=== PATIENT | male | born 1960 | race Caucasian/White ===

== ENCOUNTER 2017-02-27 17:28 | Inpatient (IN) | payer BC ==
[~2017-02-27] VITALS: Ht 180.3 cm; Wt 105.2 kg
[~2017-02-27 17:28] MED LIST: ASPI325T39 PO; ATV5X PO; ETAN50IN2 SQ; LSN20 PO
[2017-02-27] MEDS ORDERED: DIAZEPAM INJ 5 MG/ML 2 ML CARP IV STA ×2 (18:11→19:54)
[2017-02-27] MEDS ORDERED: SODIUM CHLORIDE 0.9% 1000ML 1,000 ML IV STA (18:11)
--- NOTE | 2017-02-27 18:12 | EMERGENCY ROOM VISIT NOTE ---
History Report prepared by Maynor: Mica Serrano Under the Supervision of: Jason JordanO. First contact with patient: 17:53 Chief Complaint: CARDIAC ASSESSMENT Stated Complaint: HEART PRESSURE (ALCOHOL WITHDRAWAL) History of Present Illness The patient is a 56 year old male who presents to the Emergency Room with complaints of alcohol withdrawal today. The patient reports that he had extreme anxiety this morning and that he had more alcohol, but he still felt anxious. He reports that he has palpitations when he has anxiety. He also reports feeling nauseous and light-headed, but denies abdominal pain and urinary symptoms. The patient states that he has a large ecchymosis on his back , but denies falling while being intoxicated. He states that last week he worked out and was not drinking alcohol. The patient reports that he drinks a liter of wine per day and that he has been doing this for most of his life. He states that he has been able to be sober for 6 months previously and denies ever having a seizure from withdrawal. The patient states that he takes lisinopril for hypertension and that he has psoriasis. The patient denies recreational drug use and cigarette use. Source of History: patient Onset: today Position: other (global) Quality: other (alcohol withdrawal) Associated Symptoms: + nausea, No abdominal pain, No urinary symptoms Note: additional symptoms: light-headedness and anxiety Review of Systems See HPI for pertinent positives & negatives. A total of 10 systems reviewed and were otherwise negative. Past Medical & Surgical Medical Problems: (1) Alcohol withdrawal (2) HTN (hypertension) (3) Left leg cellulitis (4) Left leg cellulitis (5) Psoriasis Family History Cancer FH: heart disease Hypertension Social History Smoking Status: Former Smoker Alcohol Use: occasionally Drug Use: none Marital Status: Housing Status: lives with significant other Occupation Status: employed Current/Historical Medications Scheduled Etanercept (Enbrel), 50 MG SQ WK Lisinopril (Lisinopril), 20 MG PO DAILY Scheduled PRN Lorazepam (Lorazepam), 0.5 MG PO BID PRN for Anxiety Allergies Coded Allergies: No Known Allergies (Unverified , 02/27/17) Physical Exam Vital Signs Date Time Temp Pulse Resp B/P (MAP) Pulse Ox O2 Delivery O2 Flow Rate FiO2 02/27/17 21:33 113 15 97 02/27/17 21:31 141/66 02/27/17 21:13 115 17 94 02/27/17 21:01 151/82 02/27/17 20:58 109 28 94 02/27/17 20:43 92 18 96 02/27/17 20:38 103 23 96 02/27/17 20:31 141/79 02/27/17 20:23 95 19 96 02/27/17 20:08 93 18 98 02/27/17 20:01 142/89 02/27/17 19:53 96 17 96 02/27/17 19:50 97 22 147/89 95 Room Air 02/27/17 19:48 02/27/17 19:15 88 17 02/27/17 19:00 92 17 02/27/17 18:55 Room Air 02/27/17 18:45 90 21 90 02/27/17 18:44 92 Room Air 02/27/17 17:58 105 02/27/17 17:38 36.6 104 20 129/79 93 Room Air Physical Exam GENERAL: alert, anxious appearing, well nourished, no distress, smell of ETOH EYE EXAM: normal conjunctiva, PERRL and EOM's grossly intact OROPHARYNX: no exudate, no erythema, lips, buccal mucosa, and tongue normal and mucous membranes are mildly dry NECK: supple, no nuchal rigidity, no adenopathy, non-tender CHEST: No crepitus. No ecchymosis. No step-off. LUNGS: Clear to auscultation. Normal chest wall mechanics HEART: regular, but tachycardic, no murmurs, S1 normal and S2 normal ABDOMEN: abdomen soft, non-tender, normo-active bowel sounds, no masses, no rebound or guarding. BACK: Back is symmetrical on inspection and there is no deformity, no midline tenderness, no CVA tenderness. Large area of ecchymosis to the right low back and right flank. No crepitus. SKIN: no rashes and no bruising UPPER EXTREMITIES: upper extremities are grossly normal. LOWER EXTREMITIES: No pitting edema. NEURO EXAM: Normal sensorium, cranial nerves II-XII intact, normal speech, no weakness of arms, no weakness of legs. No drift. Finger to nose intact. Gross sensation intact. No ataxia, no obvious tremor, no pronator drift. Medical Decision & Procedures ER Provider Diagnostic Interpretation: Radiology results have been interpreted by the radiologist and reviewed by me. CHEST 2 VIEWS ROUTINE CLINICAL HISTORY: palpitations ALCOHOL WITHDRAWAL COMPARISON STUDY: 07/11/2014 FINDINGS: The cardiac and mediastinal contours are normal. There is no evidence of focal pulmonary consolidation. There is no evidence of failure. No pleural effusions are visualized.[ IMPRESSION: No active disease in the chest. Electronically signed by: Patrick Prieto M.D. 02/27/2017 7:06 PM Dictated Date/Time: 02/27/2017 7:05 PM HEAD WITHOUT CONTRAST (CT) CLINICAL HISTORY: 56 years-old Male presenting with etoh, fall. TECHNIQUE: Multidetector CT imaging of the head was performed without the use of intravenous contrast. IV contrast: None. A dose lowering technique was used consistent with the principles of ALARA (as low as reasonably achievable). COMPARISON: None. CT DOSE (mGy.cm): The estimated cumulative dose is 2511.[address] C-spine and abdomen and pelvis. FINDINGS: Doughnut Icer Machine topogram: Unremarkable. Ventricles and sulci normal in size. Brain parenchyma normal in appearance with preserved bhakta-white differentiation. No mass effect or midline shift. No hemorrhage or acute territorial infarct. No extra-axial fluid collection. Paranasal sinuses and mastoid air cells clear. Calvarium intact. IMPRESSION: 1. No acute intracranial pathology. Electronically signed by: Delonte Delgado M.D. 02/27/2017 7:40 PM Dictated Date/Time: 02/27/2017 7:38 PM CERVICAL SPINE W/O CLINICAL HISTORY: 56 years-old Male presenting with etoh, fall. TECHNIQUE: Multidetector CT of the cervical spine was performed without the use of intravenous contrast. IV contrast: None. A dose lowering technique was used consistent with the principles of ALARA (as low as reasonably achievable). COMPARISON: None. CT DOSE (mGy.cm): The estimated cumulative dose is 2511.[address] abdomen pelvis and CT head. FINDINGS: Doughnut Icer Machine topogram: Unremarkable. Slight straightening of normal cervical lordosis, likely positional. No acute fracture or subluxation. Multilevel degenerative changes evident with disc osteophyte complexes at C4-5 through C6-7 and multilevel facet arthropathy. No significant osseous neural foraminal or spinal canal stenosis. Regional soft tissues normal. Skull base normal. Lung apices clear. IMPRESSION: No acute osseous injury of the cervical spine. Electronically signed by: Delonte Delgado M.D. 02/27/2017 7:45 PM Dictated Date/Time: 02/27/2017 7:41 PM ABD/PELVIS IV CONTRAST ONLY CLINICAL HISTORY: 56 years-old Male presenting with trauma, etoh, right low back contusion. TECHNIQUE: Multidetector CT of the abdomen and pelvis was performed after the administration of intravenous contrast. IV contrast: 120 mL of Optiray 320. A dose lowering technique was used consistent with the principles of ALARA (as low as reasonably achievable). COMPARISON: None. CT DOSE (mGy.cm): The estimated cumulative dose is 2511.08 mGy.cm. FINDINGS: Doughnut Icer Machine topogram: Unremarkable. Lung bases: Minimal dependent changes likely atelectasis. Top normal heart size. No pericardial or pleural effusion. Liver: Hepatic steatosis. No focal lesion. Patent hepatic vasculature. Biliary: No intrahepatic or extrahepatic biliary ductal dilatation. Normal gallbladder. Pancreas: Mild parenchymal atrophy. Spleen: Normal. Adrenal glands: Normal. Kidneys and ureters: Mild nonspecific perinephric fat stranding. No evidence of renal contusion or hematoma. No hydronephrosis. Ureters normal. Bladder: Mildly distended. No evidence of bladder rupture. Pelvic organs: Prostate and seminal vesicles normal. Bowel: Normal appendix. No bowel obstruction. No gross bowel wall thickening to suggest injury. Peritoneal cavity: No free fluid or intraperitoneal gas. Vasculature: Atherosclerosis of the normal caliber abdominal aorta. IVC patent. Lymph nodes: No enlarged lymph nodes in the abdomen or pelvis. Abdominal wall: No significant infiltration of the superficial tissues to suggest contusion or hematoma. Small fat-containing umbilical hernia. Musculoskeletal: Degenerative changes of the spine. IMPRESSION: 1. No acute intra-abdominal injury. 2. Hepatic steatosis. Electronically signed by: Delonte Delgado M.D. 02/27/2017 7:50 PM Dictated Date/Time: 02/27/2017 7:45 PM Laboratory Results 02/27/17 18:37 Red Blood Count 4.21, Mean Corpuscular Volume 96.2, Mean Corpuscular Hemoglobin 35.4, Mean Corpuscular Hemoglobin Concent 36.8, Mean Platelet Volume 9.1, Neutrophils (%) (Auto) 63.3, Lymphocytes (%) (Auto) 29.6, Monocytes (%) (Auto) 6.2, Eosinophils (%) (Auto) 0.0, Basophils (%) (Auto) 0.6, Neutrophils # (Auto) 4.43, Lymphocytes # (Auto) 2.07, Monocytes # (Auto) 0.43, Eosinophils # (Auto) 0.00, Basophils # (Auto) 0.04 02/27/17 18:37 Test 02/27/17 18:25 02/27/17 18:37 Urine Opiates Screen NEG (NEG) Urine Methadone, Qualitative NEG (NEG) Urine Barbiturates NEG (NEG) Urine Phencyclidine (PCP) Level NEG (NEG) Ur Amphetamine/Methamphetamine NEG (NEG) MDMA (Ecstasy) Screen NEG (NEG) Urine Benzodiazepines Screen NEG (NEG) Urine Cocaine Metabolite NEG (NEG) Urine Marijuana (THC) NEG (NEG) White Blood Count 6.99 K/uL (4.8-10.8) Red Blood Count 4.21 M/uL (4.7-6.1) Hemoglobin 14.9 g/dL (14.0-18.0) Hematocrit 40.5 % (42-52) Mean Corpuscular Volume 96.2 fL (80-100) Mean Corpuscular Hemoglobin 35.4 pg (25-34) Mean Corpuscular Hemoglobin Concent 36.8 g/dl (32-36) Platelet Count 222 K/uL (130-400) Mean Platelet Volume 9.1 fL (7.4-10.4) Neutrophils (%) (Auto) 63.3 % Lymphocytes (%) (Auto) 29.6 % Monocytes (%) (Auto) 6.2 % Eosinophils (%) (Auto) 0.0 % Basophils (%) (Auto) 0.6 % Neutrophils # (Auto) 4.43 K/uL (1.4-6.5) Lymphocytes # (Auto) 2.07 K/uL (1.2-3.4) Monocytes # (Auto) 0.43 K/uL (0.11-0.59) Eosinophils # (Auto) 0.00 K/uL (0-0.5) Basophils # (Auto) 0.04 K/uL (0-0.2) RDW Standard Deviation 42.1 fL (36.4-46.3) RDW Coefficient of Variation 12.0 % (11.5-14.5) Immature Granulocyte % (Auto) 0.3 % Immature Granulocyte # (Auto) 0.02 K/uL (0.00-0.02) Red Blood Cell Morphology Unremarkable Anion Gap 15.0 mmol/L (3-11) Est Creatinine Clear Calc Drug Dose 115.5 ml/min Estimated GFR () 111.9 Estimated GFR (Non- 96.5 BUN/Creatinine Ratio 16.2 (10-20) Calcium Level 8.7 mg/dl (8.5-10.1) Magnesium Level 1.9 mg/dl (1.8-2.4) Total Bilirubin 0.9 mg/dl (0.2-1) Direct Bilirubin 0.3 mg/dl (0-0.2) Aspartate Amino Transf (AST/SGOT) 55 U/L (15-37) Alanine Aminotransferase (ALT/SGPT) 46 U/L (12-78) Alkaline Phosphatase 90 U/L (45-117) Ammonia 28.0 umol/L (11-32) Total Protein 7.9 gm/dl (6.4-8.2) Albumin 4.2 gm/dl (3.4-5.0) Lipase 286 U/L (73-393) Thyroid Stimulating Hormone (TSH) 1.570 uIu/ml (0.300-4.500) Ethyl Alcohol mg/dL 337.0 mg/dl (0-3) Hepatitis C Antibody Screen NEG (NEG) Laboratory results per my review. Medications Administered Medications (Trade) Dose Ordered Sig/Leonard Route Start Time Stop Time Status Last Admin Dose Admin Sodium Chloride 1,000 ml @ 999 mls/hr Q1H1M STAT IV 02/27/17 18:11 02/27/17 19:11 DC 02/27/17 18:40 999 MLS/HR Diazepam (Valium Inj) 10 mg NOW STAT IV 02/27/17 18:11 02/27/17 18:14 DC 02/27/17 18:39 10 MG Diazepam (Valium Inj) 10 mg NOW STAT IV 02/27/17 19:54 02/27/17 19:55 DC 02/27/17 20:02 10 MG Multivitamins 10 ml/Thiamine HCl 100 mg/Folic Acid 1 mg/Sodium Chloride 1,011.2 ml @ 500 mls/ hr Q2H2M ONCE IV 02/27/17 20:30 02/27/17 22:31 DC 02/27/17 20:47 500 MLS/HR Gabapentin (Neurontin Tab) 1,200 mg NOW STAT PO 02/27/17 20:51 02/27/17 20:52 DC 02/27/17 20:58 1,200 MG ECG Indication: other (cardiac assessment) Rate (beats per minute): 105 Rhythm: sinus tachycardia Findings: no acute ischemic change, other (normal axis, normal intervals, low voltage) ED Course 1754: The patient was evaluated in room C9. A complete history and physical exam was performed. 1810: Ordered Valium Inj 10 mg IV, Sodium Chloride 1,000 ml @ 999 mls/hr IV. 1953: Ordered Valium Inj 10 mg IV. 2013: The patient feels better after Valium. We discussed admission and if he has any desire to get sober. 2029: Ordered Multivitamins 10 ml/Thiamine HCl 100 mg/Folic Acid 1 mg/Sodium Chloride. 2036: I reviewed the patient's case with Dr. Amaya. He will evaluate the patient for further management. Medical Decision Differential diagnosis: Etiologies such as premature contractions, electrolyte abnormality, cardiac dysrhythmia, thyroid dysfunction, pulmonary embolism, infection, gastrointestinal, as well as others were entertained. Patient with evidence of alcohol withdrawal here, no evidence of fulminant DTs and no seizures while in the emergency department. Patient with mild tachycardia was improved with Valium. Patient complained of persistent anxiety , no visible tremors. Patient with a mild anion gap likely secondary to alcohol and dehydration area did no evidence for DKA. Imaging negative for any occult trauma. Patient was agreeable with plan. Hydrated with normal saline and then given banana bag in addition. Given patient at high risk for DTs or significant alcohol withdrawal, discussed case with hospitalist for additional evaluation. Medication Reconcilliation Current Medication List: was personally reviewed by me Blood Pressure Screening Patient's blood pressure: Elevated blood pressure Blood pressure disposition: Elevated BP felt to be situational Consults Time Called: 2009 Consulting Physician: Dr. Fuentes Returned Call: [phone] I reviewed the patient's case with Dr. Amaya. He will evaluate the patient for further management. Impression Primary Impression: Alcohol intoxication Additional Impressions: Alcohol abuse Contusion Scribe Attestation The scribe's documentation has been prepared under my direction and personally reviewed by me in its entirety. I confirm that the note above accurately reflects all work, treatment, procedures, and medical decision making performed by me. Departure Information Dispostion Being Evaluated By Hospitalist Referrals No Doctor, Assigned (PCP) Patient Instructions [facility] Problem Qualifiers Primary Impression: Alcohol intoxication Complication of substance-induced condition: uncomplicated Qualified Codes: F10.920 - Alcohol use, unspecified with intoxication, uncomplicated Additional Impressions: Contusion Encounter type: initial encounter Contusion area: lower back Qualified Codes: S30.0XXA - Contusion of lower back and pelvis, initial encounter
[2017-02-27] MEDS ORDERED: OPTIRAY 320 IV PRN (18:30)
--- NOTE | 2017-02-27 19:08 | DIAGNOSTIC IMAGING REPORT ---
CHEST 2 VIEWS ROUTINE CLINICAL HISTORY: palpitations ALCOHOL WITHDRAWAL COMPARISON STUDY: 07/11/2014 FINDINGS: The cardiac and mediastinal contours are normal. There is no evidence of focal pulmonary consolidation. There is no evidence of failure. No pleural effusions are visualized.[ IMPRESSION: No active disease in the chest. Electronically signed by: Patrick Prieto M.D. 02/27/2017 7:06 PM Dictated Date/Time: 02/27/2017 7:05 PM
[2017-02-27 19:11] LABS: BUN/CREATININE RATIO 16.2 (10-20); CALCIUM 8.7 mg/dl (8.5-10.1); CREATININE 0.84 mg/dl (0.60-1.40); MAGNESIUM 1.9 mg/dl (1.8-2.4); POTASSIUM 3.9 mmol/L (3.5-5.1)
[2017-02-27 19:13] LABS: BENZODIAZEPINE, URINE NEG (NEG); COCAINE,URINE NEG (NEG); PHENCYCLIDINE, URINE NEG (NEG)
[2017-02-27 19:22] LABS: THYROID STIMULATING HORMONE 1.57 uIu/ml (0.300-4.500)
--- NOTE | 2017-02-27 19:42 | DIAGNOSTIC IMAGING REPORT ---
HEAD WITHOUT CONTRAST (CT) CLINICAL HISTORY: 56 years-old Male presenting with etoh, fall. TECHNIQUE: Multidetector CT imaging of the head was performed without the use of intravenous contrast. IV contrast: None. A dose lowering technique was used consistent with the principles of ALARA (as low as reasonably achievable). COMPARISON: None. CT DOSE (mGy.cm): The estimated cumulative dose is 2511.[address] C-spine and abdomen and pelvis. FINDINGS: Field Education Director topogram: Unremarkable. Ventricles and sulci normal in size. Brain parenchyma normal in appearance with preserved bhakta-white differentiation. No mass effect or midline shift. No hemorrhage or acute territorial infarct. No extra-axial fluid collection. Paranasal sinuses and mastoid air cells clear. Calvarium intact. IMPRESSION: 1. No acute intracranial pathology. Electronically signed by: Delonte Delgado M.D. 02/27/2017 7:40 PM Dictated Date/Time: 02/27/2017 7:38 PM
[2017-02-27 19:44] LABS: BASO % 0.6 %; BASO ABS # 0.04 K/uL (0-0.2); COMPLETE YES; HEMATOCRIT 40.5 % (42-52); IG% 0.3 %; LYMPH % 29.6 %; LYMPH ABS # 2.07 K/uL (1.2-3.4); MEAN CELL VOLUME 96.2 fL (80-100); MEAN CORPUSCULAR HEMOGLOBIN 35.4 pg (25-34); MEAN CORPUSCULAR HGB CONC 36.8 g/dl (32-36); MEAN PLATELET VOLUME 9.1 fL (7.4-10.4); MONO % 6.2 %; NEUT % 63.3 %; PLATELET COUNT 222 K/uL (130-400); RED BLOOD COUNT 4.21 M/uL (4.7-6.1); WHITE BLOOD COUNT 6.99 K/uL (4.8-10.8)
--- NOTE | 2017-02-27 19:47 | DIAGNOSTIC IMAGING REPORT ---
CERVICAL SPINE W/O CLINICAL HISTORY: 56 years-old Male presenting with etoh, fall. TECHNIQUE: Multidetector CT of the cervical spine was performed without the use of intravenous contrast. IV contrast: None. A dose lowering technique was used consistent with the principles of ALARA (as low as reasonably achievable). COMPARISON: None. CT DOSE (mGy.cm): The estimated cumulative dose is 2511.[address] abdomen pelvis and CT head. FINDINGS: Color Finisher topogram: Unremarkable. Slight straightening of normal cervical lordosis, likely positional. No acute fracture or subluxation. Multilevel degenerative changes evident with disc osteophyte complexes at C4-5 through C6-7 and multilevel facet arthropathy. No significant osseous neural foraminal or spinal canal stenosis. Regional soft tissues normal. Skull base normal. Lung apices clear. IMPRESSION: No acute osseous injury of the cervical spine. Electronically signed by: Delonte Delgado M.D. 02/27/2017 7:45 PM Dictated Date/Time: 02/27/2017 7:41 PM
--- NOTE | 2017-02-27 19:51 | DIAGNOSTIC IMAGING REPORT ---
ABD/PELVIS IV CONTRAST ONLY CLINICAL HISTORY: 56 years-old Male presenting with trauma, etoh, right low back contusion. TECHNIQUE: Multidetector CT of the abdomen and pelvis was performed after the administration of intravenous contrast. IV contrast: 120 mL of Optiray 320. A dose lowering technique was used consistent with the principles of ALARA (as low as reasonably achievable). COMPARISON: None. CT DOSE (mGy.cm): The estimated cumulative dose is 2511.08 mGy.cm. FINDINGS: Health Informatics Advisor topogram: Unremarkable. Lung bases: Minimal dependent changes likely atelectasis. Top normal heart size. No pericardial or pleural effusion. Liver: Hepatic steatosis. No focal lesion. Patent hepatic vasculature. Biliary: No intrahepatic or extrahepatic biliary ductal dilatation. Normal gallbladder. Pancreas: Mild parenchymal atrophy. Spleen: Normal. Adrenal glands: Normal. Kidneys and ureters: Mild nonspecific perinephric fat stranding. No evidence of renal contusion or hematoma. No hydronephrosis. Ureters normal. Bladder: Mildly distended. No evidence of bladder rupture. Pelvic organs: Prostate and seminal vesicles normal. Bowel: Normal appendix. No bowel obstruction. No gross bowel wall thickening to suggest injury. Peritoneal cavity: No free fluid or intraperitoneal gas. Vasculature: Atherosclerosis of the normal caliber abdominal aorta. IVC patent. Lymph nodes: No enlarged lymph nodes in the abdomen or pelvis. Abdominal wall: No significant infiltration of the superficial tissues to suggest contusion or hematoma. Small fat-containing umbilical hernia. Musculoskeletal: Degenerative changes of the spine. IMPRESSION: 1. No acute intra-abdominal injury. 2. Hepatic steatosis. Electronically signed by: Delonte Delgado M.D. 02/27/2017 7:50 PM Dictated Date/Time: 02/27/2017 7:45 PM
[2017-02-27] MEDS ORDERED: MULTI-VITAMIN INFUSION INJ 10 ML, THIAMINE HCL INJ 100 MG, FoLIC ACID INJ 1 MG in SODIU... IV ONE (20:30)
[2017-02-27] MEDS ORDERED: GABAPENTIN 600 MG TAB PO SCH (20:45)
[2017-02-27] MEDS ORDERED: GABAPENTIN 600 MG TAB PO STA (20:51)
[2017-02-27] MEDS ORDERED: LORAZEPAM 2 MG/ML 1 ML VIAL IV STA (21:38)
[2017-02-27 22:12] VITALS: Ht 180.3 cm; Wt 105.2 kg
[2017-02-27] MEDS ORDERED: NITROGLYCERIN 0.4 MG SL PER TAB CHARGE SL PRN (22:15)
[2017-02-27] MEDS ORDERED: ACETAMINOPHEN 325 MG TAB PO PRN (22:15)
[2017-02-27] MEDS ORDERED: OXYCODONE/ACETAMINOPHEN 5-325 TAB PO PRN (22:15)
[2017-02-27] MEDS ORDERED: ONDANSETRON INJ 2 MG/ML 2 ML VIAL IV PRN (22:15)
[2017-02-27] MEDS ORDERED: MAGNESIUM SULFATE 1GM / D5W 1 GM in PREMIXED IN D5W 100 ML IV ONE (22:45)
[2017-02-27 22:55] VITALS: BP 136/86; PULSE 104; TEMP 37; O2SAT 94
[2017-02-28] VITALS (13 sets, daily range): BP systolic 128–173; BP diastolic 70–99; PULSE 90–127; TEMP 36.4–37.1; O2SAT 95–98
[2017-02-28] MEDS: GABAPENTIN 600MG Q6H DOSE PO SCH ×2 (05:50→12:02)
[2017-02-28 05:54] LABS: BASO % 0.7 %; BASO ABS # 0.03 K/uL (0-0.2); COMPLETE YES; HEMATOCRIT 40.5 % (42-52); IG% 0.2 %; LYMPH % 42.5 %; LYMPH ABS # 1.71 K/uL (1.2-3.4); MEAN CELL VOLUME 97.1 fL (80-100); MEAN PLATELET VOLUME 9.2 fL (7.4-10.4); MONO % 10.7 %; NEUT % 43.9 %; PLATELET COUNT 182 K/uL (130-400); RED BLOOD COUNT 4.17 M/uL (4.7-6.1); WHITE BLOOD COUNT 4.02 K/uL (4.8-10.8)
[2017-02-28] MEDS: LORAZEPAM 2 MG/ML 1 ML VIAL IV PRN ×4 (06:17→18:22)
[2017-02-28 06:36] LABS: BUN/CREATININE RATIO 15.5 (10-20); CALCIUM 8.2 mg/dl (8.5-10.1); CREATININE 0.63 mg/dl (0.60-1.40); POTASSIUM 3.9 mmol/L (3.5-5.1)
[2017-02-28] MEDS: MULTIVITAMIN TAB PO SCH (08:42)
[2017-02-28] MEDS: THIAMINE HCL 100 MG TAB PO SCH (08:42)
[2017-02-28] MEDS: LISINOPRIL 20 MG TAB PO SCH (08:43)
--- NOTE | 2017-02-28 13:22 | Progress Note ---
Internal Med Progress Note Date of Service: Feb 28, 2017. Provider Documentation: SUBJECTIVE: Seen and examined at bedside States feeling better Denies CP/SOB/N/V Admits to feeling anxious and possibility of being depressed Denies suicidal thoughts Family at bedside OBJECTIVE: Vital Signs-as noted below Physical Exam: General Appearance:Moderately built and nourished, no apparent distress Head: normocephalic, Atraumatic Eyes: normal inspection, EOMI, PERRL Neck: supple, Trachea midline Respiratory/Chest: Normal breath sounds, CTA Cardiovascular: S1, S2, No murmur Abdomen/GI:Soft, Non tender, Bowel sounds present Extremities/Musculoskelatal:normal inspection, no edema Neurologic/Psych:grossly no focal neurological deficits Skin: normal color, warm Lab data as noted below. ASSESSMENT & PLAN: Alcohol Intoxication: Family reports patient has been binge drinking since last 6 days Patient has been to alcohol rehab facility previously Continue Alcohol withdrawal protocol with gabapentin, Ativan On thiamine, folic acid Anxiety disorder possible depression: Denies suicidal thoughts on Ativan PRN previously on SSRI with no help Psychiatry consulted HTN: Uncontrolled in setting of alcohol withdrawal continue lisinopril Labetalol PRN monitor Psoriasis: Stable Follows with dermatology as outpatient DVT Px: SCDs Ambulate as able Disposition: Monitor in Tele Patient currently is not interested in Inpatient rehab facility but would consider Vital Signs: Date Time Temp Pulse Resp B/P (MAP) Pulse Ox O2 Delivery O2 Flow Rate FiO2 02/28/17 12:58 36.9 101 20 168/88 (114) 97 Room Air 02/28/17 12:03 36.8 118 20 173/90 (117) 97 Room Air 02/28/17 12:00 97 Nasal Cannula 2.0 02/28/17 11:36 36.7 98 18 169/95 (119) 98 2.0 02/28/17 10:45 36.9 105 16 169/96 (120) 97 Nasal Cannula 2.0 02/28/17 08:00 97 Room Air 02/28/17 07:29 37.0 90 16 128/70 (89) 97 Room Air 02/28/17 04:36 36.5 90 20 131/80 (97) 97 Room Air 02/28/17 04:00 Room Air 02/28/17 00:00 Room Air 02/27/17 22:55 37.0 104 18 136/86 (103) 94 Room Air 02/27/17 22:12 Room Air 02/27/17 22:01 163/96 02/27/17 21:53 109 16 93 02/27/17 21:48 110 24 95 02/27/17 21:33 113 15 97 02/27/17 21:31 141/66 02/27/17 21:13 115 17 94 02/27/17 21:01 151/82 02/27/17 20:58 109 28 94 02/27/17 20:43 92 18 96 02/27/17 20:38 103 23 96 02/27/17 20:31 141/79 02/27/17 20:23 95 19 96 02/27/17 20:08 93 18 98 02/27/17 20:01 142/89 02/27/17 19:53 96 17 96 02/27/17 19:50 97 22 147/89 95 Room Air 02/27/17 19:48 02/27/17 19:15 88 17 02/27/17 19:00 92 17 02/27/17 18:55 Room Air 02/27/17 18:45 90 21 90 02/27/17 18:44 92 Room Air 02/27/17 17:58 105 02/27/17 17:38 36.6 104 20 129/79 93 Room Air Lab Results: Results Past 24 Hours Test 02/27/17 18:25 02/27/17 18:37 02/28/17 05:22 Range/Units Urine Opiates Screen NEG NEG Urine Methadone, Qualitative NEG NEG Urine Barbiturates NEG NEG Urine Phencyclidine (PCP) Level NEG NEG Ur Amphetamine/Methamphetamine NEG NEG MDMA (Ecstasy) Screen NEG NEG Urine Benzodiazepines Screen NEG NEG Urine Cocaine Metabolite NEG NEG Urine Marijuana (THC) NEG NEG White Blood Count 6.99 4.02 4.8-10.8 K/uL Red Blood Count 4.21 4.17 4.7-6.1 M/uL Hemoglobin 14.9 14.6 14.0-18.0 g/dL Hematocrit 40.5 40.5 42-52 % Mean Corpuscular Volume 96.2 97.1 80-100 fL Mean Corpuscular Hemoglobin 35.4 35.0 25-34 pg Mean Corpuscular Hemoglobin Concent 36.8 36.0 32-36 g/dl Platelet Count 222 182 130-400 K/uL Mean Platelet Volume 9.1 9.2 7.4-10.4 fL Neutrophils (%) (Auto) 63.3 43.9 % Lymphocytes (%) (Auto) 29.6 42.5 % Monocytes (%) (Auto) 6.2 10.7 % Eosinophils (%) (Auto) 0.0 2.0 % Basophils (%) (Auto) 0.6 0.7 % Neutrophils # (Auto) 4.43 1.76 1.4-6.5 K/uL Lymphocytes # (Auto) 2.07 1.71 1.2-3.4 K/uL Monocytes # (Auto) 0.43 0.43 0.11-0.59 K/uL Eosinophils # (Auto) 0.00 0.08 0-0.5 K/uL Basophils # (Auto) 0.04 0.03 0-0.2 K/uL RDW Standard Deviation 42.1 43.1 36.4-46.3 fL RDW Coefficient of Variation 12.0 12.0 11.5-14.5 % Immature Granulocyte % (Auto) 0.3 0.2 % Immature Granulocyte # (Auto) 0.02 0.01 0.00-0.02 K/uL Red Blood Cell Morphology Unremarkable Sodium Level 131 139 136-145 mmol/L Potassium Level 3.9 3.9 3.5-5.1 mmol/L Chloride Level 95 105 98-107 mmol/L Carbon Dioxide Level 21 26 21-32 mmol/L Anion Gap 15.0 8.0 3-11 mmol/L Blood Urea Nitrogen 14 10 7-18 mg/dl Creatinine 0.84 0.63 0.60-1.40 mg/dl Est Creatinine Clear Calc Drug Dose 115.5 153.9 ml/min Estimated GFR () 111.9 125.9 Estimated GFR (Non- 96.5 108.6 BUN/Creatinine Ratio 16.2 15.5 10-20 Random Glucose 99 78 70-99 mg/dl Calcium Level 8.7 8.2 8.5-10.1 mg/dl Magnesium Level 1.9 1.8-2.4 mg/dl Total Bilirubin 0.9 0.2-1 mg/dl Direct Bilirubin 0.3 0-0.2 mg/dl Aspartate Amino Transf (AST/SGOT) 55 15-37 U/L Alanine Aminotransferase (ALT/SGPT) 46 12-78 U/L Alkaline Phosphatase 90 45-117 U/L Ammonia 28.0 11-32 umol/L Total Protein 7.9 6.4-8.2 gm/dl Albumin 4.2 3.4-5.0 gm/dl Lipase 286 73-393 U/L Thyroid Stimulating Hormone (TSH) 1.570 0.300-4.500 uIu/ml Ethyl Alcohol mg/dL 337.0 0-3 mg/dl Hepatitis C Antibody Screen NEG NEG
[2017-02-28] MEDS ORDERED: LABETALOL HCL IV 5 MG/ML 20ML IV PRN (13:30)
[2017-02-28] MEDS ORDERED: AMLODIPINE BESYLATE 5 MG TAB PO ONE (13:45)
--- NOTE | 2017-02-28 16:33 | History and Physical ---
History & Physical Date of Service Feb 28, 2017. History & Physical DICTATED BY: Jarred Amaya M.D. *NOTICE TO RECEIVING REPUBLICAN/AGENCY This information is strictly Confidential and protected under [place] law. [place] law prohibits you from making any further disclosure of this information unless further disclosure is expressly permitted by the written consent of the person to whom it pertains or is authorized by law. A general authorization for the release of medical or other information is not sufficient for this purpose. Hospital accepts no responsibility if the information is made available to any other person, INCLUDING THE PATIENT. DATE OF ADMISSION: 02/27/2017 PRIMARY CARE DOCTOR: Dr. Bey. CHIEF COMPLAINT: Anxiety, alcohol withdrawal. HISTORY OF PRESENT ILLNESS: Medical history is significant for hypertension, psoriasis on biologic agent, Skin cancer status post surgery, past tobacco abuse, ongoing alcohol abuse, depression, currently not on meds. Today patient felt anxious, started drinking. Later on he made a decision to stop drinking. He noted palpitations, nausea, lightheadedness. No chest pain, no shortness of breath. A few days ago had a fall on his back while riding a tractor, he sustained a bruise on the R flank area . No previous intubations for alcohol withdrawal or seizures. Last time he went to alcohol rehab was in [place], [place] late in 2015. MEDICAL HISTORY: As above. SURGICAL HISTORY: He has had skin cancer surgery. HOME MEDICATIONS: Lisinopril, lorazepam, Enbrel. ALLERGIES: No known drug allergies. FAMILY HISTORY: Alcoholism, heart disease, diabetes. PERSONAL AND SOCIAL HISTORY: Past tobacco abuse, admits to alcohol abuse. Lives with . REVIEW OF SYSTEMS: As per HPI, all other ROS negative. PHYSICAL EXAMINATION: VITAL SIGNS: Blood pressure was noted to be 147/89, pulse rate 97, RR 22, temperature 37, sats 94 on room air. GENERAL: Noted to be slightly anxious, obese, no respiratory distress. SKIN: Sunburnt skin. Psoriasis plaques noted on the knees. HEENT: [place] palpebral conjuctivae. Dry mucosa. NECK: Short neck. LUNGS: Decreased breath sounds. HEART: Tachycardic. BACK : tender ecchymosis, R flank ABDOMEN: Some distension, nontender. EXTREMITIES: No lower extremity edema, no tenderness. NEUROLOGIC: No gross focality. LABORATORY DATA: Hemoglobin was noted to be 14.9, hematocrit 40, white cells 6.99, platelets 222. Sodium 131, chloride 95, CO2 21, BUN 40, creatinine 0.8, glucose was noted to be 99, AST 55. Alcohol level is 387. CT head, no acute pathology. Chest x-ray, no active disease. Cervical spine CT, no acute osseous injury. CT abdomen and pelvis; hepatic steatosis, small fat containing umbilical hernia. ASSESSMENT: 1. Alcohol withdrawal. 2. Hypertension, slightly elevated. 3. Depression, not on medications. The patient did not like being on SSRIs previously. 4. Prior tobacco abuse. 5. Traumatic ecchymosis, right flank PLAN: PCU DT precautions Psych consult for depression. PT/OT eval. Social service RE discharge planning. DVT prophylaxis, SCDs RE traumatic ecchymosis Full code. Dictated: 02/28/17 0106 Transcribed: 02/28/17 0154 <Electronically signed by Jarred Amaya M.D.> Signed: 02/28/17 0915 ES Jarred Amaya M.D.
--- NOTE | 2017-02-28 19:56 | Psychiatric Consultation ---
Consultation Date of Consultation Feb 28, 2017. Identifying Data Patient is a 56yo MWM with history of depression and anxiety presented to [facility] for alcohol dependence pending alcohol withdrawal admitted for detox. Psychiatry consulted to assess for depression. Chief Complaint "I want to stop drinking". History of Present Illness The fahad is a 56yo MWM who presents for alcohol detox who is motivated to quit drinking. He has a history of drinking for >30years, but reports even prior to using alcohol he was an anxious person, and now his anxiety worsens when he does not drink. He has h/o panic attacks in his 20's but now only has panic symptoms in withdrawal. He reports he is an intense [id number] person about everything he does. He will ruminate and catastrophize about work issues at times feeling he cannot shut his mind off. He does report irritability and, feeling on edge, easily emotional to tears as well which is also lifelong and does not seem episodic. He has raised his voice in work settings before but denies physical aggression in the home or at work and his concurs. He denies h/o OCD, PTSD or agoraphobia. He has h/o depressive symptoms with poor sleep but feeling tired, low motivation , low energy, and guilt, but denies h/h/w or safety concerns now or in the past. His has observed intermittant depressions throughout their marriage patient recalls specific occurrences when his sons moved away from home 2 and 5 years ago. Prsently he denies feeling overtly depressed but rather down that he is in this place of trying to quit again, but sleep, interest, energy, concentraiton are intact. He has some guilt but denies h/h/w or safety concerns at this time. He does report times when he has trouble sleeping getting about 3-4 hours/night with his mind going usually about catastrophizing over a work issue, and worrying. He denies feeling energized but does not feel excessively sleepy during these times either. He denies indiscretions but has a flight into activity during these times "can't relax" and although he denies irritability or euphoria does not feel well or good at these times. He denies being hypersexual or religiuos or grandiose. He does not seem to be more emotionally labile during those times. It is hard for him to the alcohol use and abstinence from these times, but reports they happen about once a month. He denies predictable low moods after these sleepless phases He does snore, states he does seem to have irregular breathing at times seems to pause in breathing. He does have AM CASAREZ but he denies EDS. He denies in any mood state having s/sx of psychosis. He has been treatment previously for alcohol dependence. He has attended AA in the past and felt the was benefit in the camaraderie. Five years ago attended [facility] and was sober for the duration of the programming but relapsed when he ended the program. IN 04/2016 he went to rehab in [facility] and was abstinent from his return home around [place] until August when they went to [facility]. He notes there is alcohol in the home as his who is not an alcoholic drinks , and they have friends who drink (e.g. they tailgate with a group at each home [employer] game friends from college) He drinks a litre of wine a day "for most of my life" He had a fall while intoxicated recently and has a bruise on his back He was drinking for 6 days prior to admission, his PATTIE was 337 at 6pm in the evening on 02/27/17. HE is on AWSS. He has never had seizures or hallucinosis, or DT's he has shakes and sweats when he does not drink "I can't do this on my own" Past Psychiatric History Current OP Treatment: therapist (Mark Ferraro, acceptance and committment therapy) Prior Psych Hospitalizations: none Access to a Gun: No Suicide Attempts: No Past Medication Trials [facility] prescribes prn ativan 0.5mg po bid SSRI does not recall the name, felt cognitively cloudy Past Medical/Surgical History History of Concussion/Seizure: No Allergies Allergies: Coded Allergies: No Known Allergies (Unverified , 02/27/17) Home Medications Scheduled Etanercept (Enbrel), 50 MG SQ WK Lisinopril (Lisinopril), 20 MG PO DAILY Scheduled PRN Lorazepam (Lorazepam), 0.5 MG PO BID PRN for Anxiety Family History Cancer FH: heart disease Hypertension History of Suicide: No History of Substance Abuse: Yes (grandfather alcoholic) Psychiatric History: Yes (sister depression) Alcohol Use Alcohol Use In Past 12 Months: Yes (see above) Smoking Use Smoking Status: Never Smoker Substance History Denies other substance of abuse, see alcohol history as above. Personal History Education: graduated college (geology and engineering degrees) Work History: road engineer freight, self employed contractor Relationship History: Children: 2 grown sons who live out of the area Spiritual Affiliation: Hinduism, no shiela community Legal History: none Psychological Trauma History: Denies Hx Traumatic Event Review of Systems shakes and sweats prior to prn AWSS ativan dry skin from excema o/w denies physical concerns today Examination Physical Examination see exam by fahad's primary team, reviewed by this provider Vital Signs Vital Signs Past 12 Hours Date Time Temp Pulse Resp B/P (MAP) Pulse Ox O2 Delivery O2 Flow Rate FiO2 02/28/17 18:00 36.4 97 18 159/99 (119) 95 Room Air 02/28/17 16:00 97 Nasal Cannula 2.0 02/28/17 15:23 37.1 127 16 136/84 (101) 98 Room Air 02/28/17 12:58 36.9 101 20 168/88 (114) 97 Room Air 02/28/17 12:03 36.8 118 20 173/90 (117) 97 Room Air 02/28/17 12:00 97 Nasal Cannula 2.0 02/28/17 11:36 36.7 98 18 169/95 (119) 98 2.0 02/28/17 10:45 36.9 105 16 169/96 (120) 97 Nasal Cannula 2.0 02/28/17 08:00 97 Room Air 02/28/17 07:29 37.0 90 16 128/70 (89) 97 Room Air Laboratory Results Last 24 Hours Test 02/28/17 05:22 White Blood Count 4.02 K/uL Red Blood Count 4.17 M/uL Hemoglobin 14.6 g/dL Hematocrit 40.5 % Mean Corpuscular Volume 97.1 fL Mean Corpuscular Hemoglobin 35.0 pg Mean Corpuscular Hemoglobin Concent 36.0 g/dl Platelet Count 182 K/uL Mean Platelet Volume 9.2 fL Neutrophils (%) (Auto) 43.9 % Lymphocytes (%) (Auto) 42.5 % Monocytes (%) (Auto) 10.7 % Eosinophils (%) (Auto) 2.0 % Basophils (%) (Auto) 0.7 % Neutrophils # (Auto) 1.76 K/uL Lymphocytes # (Auto) 1.71 K/uL Monocytes # (Auto) 0.43 K/uL Eosinophils # (Auto) 0.08 K/uL Basophils # (Auto) 0.03 K/uL RDW Standard Deviation 43.1 fL RDW Coefficient of Variation 12.0 % Immature Granulocyte % (Auto) 0.2 % Immature Granulocyte # (Auto) 0.01 K/uL Sodium Level 139 mmol/L Potassium Level 3.9 mmol/L Chloride Level 105 mmol/L Carbon Dioxide Level 26 mmol/L Anion Gap 8.0 mmol/L Blood Urea Nitrogen 10 mg/dl Creatinine 0.63 mg/dl Est Creatinine Clear Calc Drug Dose 153.9 ml/min Estimated GFR () 125.9 Estimated GFR (Non- 108.6 BUN/Creatinine Ratio 15.5 Random Glucose 78 mg/dl Calcium Level 8.2 mg/dl Mental Examination During interview pt is: alert and oriented Appearance: other (in hospital gown, clean and shaven) Eye contact is: good Motor behavior is: steady gait & station (no shaking) Speech: normal in rate, rhythm & volume Affect: tearful, blunted Mood is: other (subdued denies overt depression but rather guilty and midly anxious ) Thought process: goal directed, linear, logical, clear, coherent Thought content: other (often labels his thoughts as stupid, or actions as stupid) Suicidal thought are: denied Homicidal thoughts are: denied Hallucinations: denies auditory, denies visual Cognition: memory grossly intact, attention grossly intact Intelligence estimated to be: average Insight: good Judgement: good Impression / Recommendations Impression Dx impending alcohol withdrawal Alcohol dependence Substance induced mood disorder r/o MDD recurrent, unspecified (does not currenty seem depressed but further observation warranted) r/o OCPD vs. bipolar II disorder Subsance induced anxiety disorder r/o Generalized anxiety disorder 1. Safety - outpatient care is least restrictive and most appropriate setting for care once medically cleared (see risk assessment below) 2 Alcohol depdendence - agree with AWSS - To minimize nausea wait until patient is off alcohol for 3 days then start naltrexone 50mg/AM discussed r/b/se/a with patient and LFTs are acceptable to begin. He agrees with this plan (after discussing disulfuram and campral as well) HE will need repeat LFT's in 6-8 weeks after starting - recommend AA, and [facility] for outpatient support after discharge if patient is weilling - recommend therapy either return to [facility] OR names given of dual diagnosis therapists in the area 3. Anxiety and Mood - pateint does not wish to take an SSRI at this time, discussed trial of second SSRI may be worth it, prozac is least likely to cause cognitive clouding but most likely to be activating, trintellex may be worthwhile if available, would start low and go slow and watch for rare but possible bipolar II disorder - I do not recommend ativan for this patient at this time Given addictions history he may benefit from propranolol or other non-controlled medication through behavioral health prescriber. - recommend therapy (see note about dual diagnosis therapist as above) to work on his all or nothing and catastrophizing tendencies and behavioral strategies to work on anxiety Please CC' PCM on this note Code [id number] Risk Factors Assessment Male: Yes : Yes /single/: No Higher / Fall in social status: No Access to guns: No Health problems: No Mental Health Diagnoses: No Substance use disorders: No Previous attempt: No Previous attempt;highly lethal: No Previous attempt; planned: No Previous attempt; didn't tell: No Family history of suicide: No Previous psychiatric stay: No Hopelessness: No Smoker: No Protective Factors Assessment Anglican beliefs: Yes : Yes Responsible for young children: No Employed: Yes Stable relationships: Yes Supportive family: Yes Good rapport with provider: Yes Absence of risk factors above: Yes (future oriented, motivated for change) Recommendations (1) DEAN (generalized anxiety disorder) (2) Major depression, recurrent (3) Alcohol intoxication (4) Alcohol abuse (5) Alcohol withdrawal
[2017-02-28] MEDS ORDERED: METOPROLOL SUCC 25MG EXT REL TAB PO ONE (21:31)
[2017-02-28] MEDS ORDERED: POTASSIUM CHLORIDE 10 MEQ TABCR PO STA (21:31)
--- NOTE | 2017-02-28 21:32 | Progress Note ---
Internal Med Progress Note Date of Service: Feb 28, 2017. Provider Documentation: Made aware by RN christiano jean on the monitor. Patient asymptomatic. Serum K3.7 Initiate beta sandra to suppress ectopy. Supplemental K to maintain serum K greater than 4 Will relay to AM provider. Vital Signs: Date Time Temp Pulse Resp B/P (MAP) Pulse Ox O2 Delivery O2 Flow Rate FiO2 03/01/17 12:20 36.9 85 18 150/96 (114) 97 Room Air 03/01/17 12:09 97 Room Air 03/01/17 11:20 36.7 82 18 150/99 (116) 96 Room Air 03/01/17 08:01 36.4 80 20 161/80 (107) 97 03/01/17 08:00 97 Room Air 03/01/17 06:00 36.5 94 18 152/90 (110) 98 Room Air 03/01/17 04:00 Room Air 03/01/17 04:00 36.6 80 18 160/98 (118) 95 Room Air 03/01/17 03:23 36.6 86 18 163/107 (125) 97 Room Air 03/01/17 00:00 37.1 85 18 155/99 (117) 95 Room Air 03/01/17 00:00 Room Air 02/28/17 22:23 96 169/88 (115) 02/28/17 20:00 Room Air 02/28/17 19:41 36.6 104 18 163/97 (119) 98 Room Air 02/28/17 18:00 36.4 97 18 159/99 (119) 95 Room Air 02/28/17 16:00 97 Nasal Cannula 2.0 02/28/17 15:23 37.1 127 16 136/84 (101) 98 Room Air Lab Results: Results Past 24 Hours Test 02/28/17 21:01 02/28/17 21:34 Range/Units Bedside Glucose 107 70-99 mg/dl Sodium Level 136 136-145 mmol/L Potassium Level 3.7 3.5-5.1 mmol/L Chloride Level 102 98-107 mmol/L Carbon Dioxide Level 28 21-32 mmol/L Anion Gap 6.0 3-11 mmol/L Blood Urea Nitrogen 14 7-18 mg/dl Creatinine 0.93 0.60-1.40 mg/dl Est Creatinine Clear Calc Drug Dose 106.2 ml/min Estimated GFR () 104.5 Estimated GFR (Non- 90.2 BUN/Creatinine Ratio 14.5 10-20 Random Glucose 107 70-99 mg/dl Calcium Level 8.9 8.5-10.1 mg/dl Magnesium Level 2.0 1.8-2.4 mg/dl
[2017-02-28 22:15] LABS: BUN/CREATININE RATIO 14.5 (10-20); CALCIUM 8.9 mg/dl (8.5-10.1); CREATININE 0.93 mg/dl (0.60-1.40); POTASSIUM 3.7 mmol/L (3.5-5.1)
[2017-02-28] MEDS: GABAPENTIN 600MG Q8H DOSE PO SCH (22:24)
[2017-03-01] VITALS (13 sets, daily range): BP systolic 138–163; BP diastolic 80–107; PULSE 79–94; TEMP 36.4–37.1; O2SAT 95–98
[2017-03-01] MEDS: LORAZEPAM 2 MG/ML 1 ML VIAL IV PRN ×2 (03:32→09:58)
[2017-03-01] MEDS: GABAPENTIN 600MG Q8H DOSE PO SCH ×2 (06:16→14:46)
[2017-03-01] MEDS: MULTIVITAMIN TAB PO SCH (08:34)
[2017-03-01] MEDS: LISINOPRIL 20 MG TAB PO SCH (08:35)
[2017-03-01] MEDS: THIAMINE HCL 100 MG TAB PO SCH (08:35)
--- NOTE | 2017-03-01 11:59 | Psychiatric Progress Notes ---
Psychiatric Progress Note Date of Service Mar 01, 2017. Notes ID: Patient reviewed with liaison nurse. Initial consult by Dr. Florence completed 02/28. CC: "I feel good" HPI: patient aware of recs re: outpatient D&A counseling and not to restart Revia until 3 days after last drink. ROS: denies physical complaints at this time Current Inpatient Medications Medications (Trade) Dose Ordered Sig/Leonard Route Start Time Stop Time Status Last Admin Dose Admin Ioversol (Optiray 320) 111 ml UD PRN IV 02/27/17 18:30 03/03/17 18:29 Lorazepam (Ativan Inj) PRN Dosing -Active Protocol Q1H PRN IV 02/27/17 20:45 03/29/17 20:44 03/01/17 09:58 1 MG Acetaminophen (Tylenol Tab) 650 mg Q4H PRN PO 02/27/17 22:15 03/29/17 22:14 Nitroglycerin (Nitrostat Tab) 0.4 mg UD PRN SL 02/27/17 22:15 03/29/17 22:14 Ondansetron HCl (Zofran Inj) 4 mg Q6H PRN IV 02/27/17 22:15 03/29/17 22:14 Thiamine HCl (Vitamin B-1 Tab) 100 mg QAM PO 02/28/17 09:00 03/30/17 08:59 03/01/17 08:35 100 MG Multivitamins (Multivitamin Tab) 1 tab QAM PO 02/28/17 09:00 03/30/17 08:59 03/01/17 08:34 1 TAB Folic Acid (Folvite Tab) 1 mg QAM PO 02/28/17 09:00 03/30/17 08:59 03/01/17 08:34 1 MG Lisinopril (Zestril Tab) 20 mg DAILY PO 02/28/17 09:00 03/30/17 08:59 03/01/17 08:35 20 MG Oxycodone/ Acetaminophen (Percocet 5-325mg Tab) 1 tab Q6H PRN PO 02/27/17 22:15 03/13/17 22:14 Gabapentin (Neurontin Tab) 600 mg Q8H PO 02/28/17 22:00 03/01/17 14:01 03/01/17 06:16 600 MG Gabapentin (Neurontin Tab) 600 mg Q12H PO 03/02/17 00:00 03/02/17 12:01 Gabapentin (Neurontin Tab) 600 mg Q24H PO 03/03/17 12:00 03/03/17 12:01 Labetalol HCl (Normodyne IV) 10 mg Q4H PRN IV 02/28/17 13:30 03/30/17 13:29 Metoprolol Succinate (Toprol Xl Tab) 25 mg HS PO 03/01/17 21:00 03/31/17 20:59 Reported Home Medications Medications Dose Route/Sig Max Daily Dose Days Date Category Enbrel (Etanercept) 50 Mg/ Inj 50 Mg SQ WK 08/22/14 Reported Lorazepam 0.5 Mg Tab 0.5 Mg PO BID PRN 01/07/14 Reported Lisinopril 20 Mg Tab 20 Mg PO DAILY 01/07/14 Reported MSE: alert, cooperative, speech nl in rate and volume, thoughts organized, no SI /HI/bill. Imp: as per initial consult Plan: as per initial consult.
--- NOTE | 2017-03-01 13:13 | Progress Note ---
Internal Med Progress Note Date of Service: Mar 01, 2017. Provider Documentation: SUBJECTIVE: Seen and examined at bedside Doing well today Denies CP/SOB/N/V Eager to get discharged OBJECTIVE: Vital Signs-as noted below Physical Exam: General Appearance:Moderately built and nourished, no apparent distress Head: normocephalic, Atraumatic Eyes: normal inspection, EOMI, PERRL Neck: supple, Trachea midline Respiratory/Chest: Normal breath sounds, CTA Cardiovascular: S1, S2, No murmur Abdomen/GI:Soft, Non tender, Bowel sounds present Extremities/Musculoskelatal:normal inspection, no edema Neurologic/Psych:grossly no focal neurological deficits Skin: normal color, warm Lab data as noted below. ASSESSMENT & PLAN: Alcohol Intoxication: Family reports patient has been binge drinking since last 6 days Patient has been to alcohol rehab facility previously Continue Alcohol withdrawal protocol with gabapentin, Ativan On thiamine, folic acid Substance induced mood/Anxiety disorder Denies suicidal thoughts on Ativan PRN previously on SSRI with no help Appreciate Psychiatry Input HTN: Better continue lisinopril, BB Labetalol PRN monitor Psoriasis: Stable Follows with dermatology as outpatient DVT Px: SCDs Ambulate as able Disposition: Monitor in Tele Patient prefers to attend rehab program as outpatient fire services plumber consulted Vital Signs: Date Time Temp Pulse Resp B/P (MAP) Pulse Ox O2 Delivery O2 Flow Rate FiO2 03/01/17 12:20 36.9 85 18 150/96 (114) 97 Room Air 03/01/17 12:09 97 Room Air 03/01/17 11:20 36.7 82 18 150/99 (116) 96 Room Air 03/01/17 08:01 36.4 80 20 161/80 (107) 97 03/01/17 08:00 97 Room Air 03/01/17 06:00 36.5 94 18 152/90 (110) 98 Room Air 03/01/17 04:00 Room Air 03/01/17 04:00 36.6 80 18 160/98 (118) 95 Room Air 03/01/17 03:23 36.6 86 18 163/107 (125) 97 Room Air 03/01/17 00:00 37.1 85 18 155/99 (117) 95 Room Air 03/01/17 00:00 Room Air 02/28/17 22:23 96 169/88 (115) 02/28/17 20:00 Room Air 02/28/17 19:41 36.6 104 18 163/97 (119) 98 Room Air 02/28/17 18:00 36.4 97 18 159/99 (119) 95 Room Air 02/28/17 16:00 97 Nasal Cannula 2.0 02/28/17 15:23 37.1 127 16 136/84 (101) 98 Room Air Lab Results: Results Past 24 Hours Test 02/28/17 21:01 02/28/17 21:34 Range/Units Bedside Glucose 107 70-99 mg/dl Sodium Level 136 136-145 mmol/L Potassium Level 3.7 3.5-5.1 mmol/L Chloride Level 102 98-107 mmol/L Carbon Dioxide Level 28 21-32 mmol/L Anion Gap 6.0 3-11 mmol/L Blood Urea Nitrogen 14 7-18 mg/dl Creatinine 0.93 0.60-1.40 mg/dl Est Creatinine Clear Calc Drug Dose 106.2 ml/min Estimated GFR () 104.5 Estimated GFR (Non- 90.2 BUN/Creatinine Ratio 14.5 10-20 Random Glucose 107 70-99 mg/dl Calcium Level 8.9 8.5-10.1 mg/dl Magnesium Level 2.0 1.8-2.4 mg/dl
[2017-03-01] MEDS ORDERED: METOPROLOL SUCC 25MG EXT REL TAB PO SCH (21:00)
[2017-03-01] MEDS: GABAPENTIN 600MG Q12H DOSE PO SCH (23:28)
[2017-03-02 04:09] VITALS: BP 139/87; PULSE 85; TEMP 36.6; O2SAT 98
[2017-03-02 07:17] VITALS: BP 148/89; PULSE 73; TEMP 36.7; O2SAT 97
[2017-03-02] MEDS: MULTIVITAMIN TAB PO SCH (07:38)
[2017-03-02] MEDS: THIAMINE HCL 100 MG TAB PO SCH (07:38)
[2017-03-02] MEDS: LISINOPRIL 20 MG TAB PO SCH (07:38)
--- NOTE | 2017-03-02 11:06 | Progress Note ---
Internal Med Progress Note Date of Service: Mar 02, 2017. Provider Documentation: SUBJECTIVE: Seen and examined at bedside Feels well No complaints Denies CP/SOB/N/V Eager to get discharged Not requiring Ativan today OBJECTIVE: Vital Signs-as noted below Physical Exam: General Appearance:Moderately built and nourished, no apparent distress Head: normocephalic, Atraumatic Eyes: normal inspection, EOMI, PERRL Neck: supple, Trachea midline Respiratory/Chest: Normal breath sounds, CTA Cardiovascular: S1, S2, No murmur Abdomen/GI:Soft, Non tender, Bowel sounds present Extremities/Musculoskelatal:normal inspection, no edema Neurologic/Psych:grossly no focal neurological deficits Skin: normal color, warm Lab data as noted below. ASSESSMENT & PLAN: Alcohol Intoxication: Family reports patient has been binge drinking since last 6 days Patient has been to alcohol rehab facility previously Continue Alcohol withdrawal protocol with gabapentin, Ativan On thiamine, folic acid Patient preferred to follow up with AA meeting, counselling and rehab program as outpatient Resources provided Already attends AA meeting Substance induced mood/Anxiety disorder Denies suicidal thoughts on Ativan PRN previously on SSRI with no help Appreciate Psychiatry Input Patient prefers to discuss with PCP prior to starting on Rivea Also deferred any therapy currently HTN: Uncontrolled in setting of alcohol withdrawal Stable now continue lisinopril Will DC BB Labetalol PRN monitor Psoriasis: Stable Follows with dermatology as outpatient DVT Px: SCDs Ambulate as able Disposition: Plan to DC home today Follow up with on 03/05/17 at 11:05 Am Follow with AA meeting/Counselling for rehab as outpatient as recommended Seek immediate medical attention if your symptoms reoccur or worsen Follow up with your Psychiatrist as advised Discuss with your primary care doctor regarding Rivea as advised Vital Signs: Date Time Temp Pulse Resp B/P (MAP) Pulse Ox O2 Delivery O2 Flow Rate FiO2 03/02/17 08:00 Room Air 03/02/17 07:17 36.7 73 16 148/89 (108) 97 03/02/17 04:09 36.6 85 16 139/87 (104) 98 Room Air 03/02/17 04:00 Room Air 03/02/17 00:00 Room Air 03/01/17 23:23 36.8 79 16 154/80 (104) 97 Room Air 03/01/17 20:43 87 142/86 (104) 03/01/17 20:00 Room Air 03/01/17 19:50 36.8 84 20 138/84 (102) 97 Room Air 03/01/17 16:00 98 Room Air 2.0 03/01/17 16:00 36.8 79 16 144/87 (106) 98 Room Air 03/01/17 12:20 36.9 85 18 150/96 (114) 97 Room Air 03/01/17 12:09 97 Room Air 03/01/17 11:20 36.7 82 18 150/99 (116) 96 Room Air
[2017-03-02] MEDS ORDERED: THM100 PO (11:10)
[2017-03-02] MEDS ORDERED: NRN600 PO (11:10)
[2017-03-02] MEDS ORDERED: FLV1 PO (11:10)
--- NOTE | 2017-03-02 11:13 | Discharge Summary ---
Discharge Summary Date of Service Mar 02, 2017. Discharge Summary Admission Date: Feb 27, 2017 at 21:33 Discharge Date: Mar 02, 2017 Discharge Disposition: Home Principal Diagnosis: Alcohol withdrawal Procedures: CT head: No acute intracranial pathology. CT ABD: 1. No acute intra-abdominal injury. 2. Hepatic steatosis. CT C-spine: No acute osseous injury of the cervical spine. Consultations: Psychiatry Pending Studies/Follow-Up: Follow up with on 03/05/17 at 11:05 Am Follow with AA meeting/Counselling for rehab as outpatient as recommended Seek immediate medical attention if your symptoms reoccur or worsen Follow up with your Psychiatrist as advised Discuss with your primary care doctor regarding Rivea as advised Medication Reconciliation New Medications: Folic Acid (Folic Acid) 1 Mg Tab 1 MG PO QAM for 7 Days, #7 TAB Gabapentin (Gabapentin) 600 Mg Tab 600 MG PO UD for 2 Days, #3 TAB Take one tablet twice a day today(03/02/17) and once tomorrow (03/03/17) Thiamine HCl (Vitamin B-1) 100 Mg Tab 100 MG PO QAM for 7 Days, #7 TAB Continued Medications: Etanercept (Enbrel) 50 Mg/ Inj 50 MG SQ WK Lisinopril (Lisinopril) 20 Mg Tab 20 MG PO DAILY, #30 Lorazepam (Lorazepam) 0.5 Mg Tab 0.5 MG PO BID PRN for Anxiety, #30 Admission Information HPI (per Admitting provider): CHIEF COMPLAINT: Anxiety, alcohol withdrawal. HISTORY OF PRESENT ILLNESS: Medical history is significant for hypertension, psoriasis on biologic agent, Skin cancer status post surgery, past tobacco abuse, ongoing alcohol abuse, depression, currently not on meds. Today patient felt anxious, started drinking. Later on he made a decision to stop drinking. He noted palpitations, nausea, lightheadedness. No chest pain, no shortness of breath. A few days ago had a fall on his back while riding a tractor, he sustained a bruise on the R flank area . No previous intubations for alcohol withdrawal or seizures. Last time he went to alcohol rehab was in [place], [place] late in 2015. Physical Exam (per Admitting): PHYSICAL EXAMINATION: VITAL SIGNS: Blood pressure was noted to be 147/89, pulse rate 97, RR 22, temperature 37, sats 94 on room air. GENERAL: Noted to be slightly anxious, obese, no respiratory distress. SKIN: Sunburnt skin. Psoriasis plaques noted on the knees. HEENT: [place] palpebral conjuctivae. Dry mucosa. NECK: Short neck. LUNGS: Decreased breath sounds. HEART: Tachycardic. BACK : tender ecchymosis, R flank ABDOMEN: Some distension, nontender. EXTREMITIES: No lower extremity edema, no tenderness. NEUROLOGIC: No gross focality. Hospital Course Alcohol Intoxication: Family reports patient has been binge drinking since last 6 days Patient has been to alcohol rehab facility previously Continue Alcohol withdrawal protocol with gabapentin, Ativan On thiamine, folic acid Patient preferred to follow up with AA meeting, counselling and rehab program as outpatient Resources provided Already attends AA meeting Substance induced mood/Anxiety disorder Denies suicidal thoughts on Ativan PRN previously on SSRI with no help Appreciate Psychiatry Input Patient prefers to discuss with PCP prior to starting on Rivea Also deferred any therapy currently HTN: Uncontrolled in setting of alcohol withdrawal Stable now continue lisinopril Will DC BB Labetalol PRN monitor Psoriasis: Stable Follows with dermatology as outpatient DVT Px: SCDs Ambulate as able Disposition: Plan to DC home today Follow up with on 03/05/17 at 11:05 Am Follow with AA meeting/Counselling for rehab as outpatient as recommended Seek immediate medical attention if your symptoms reoccur or worsen Follow up with your Psychiatrist as advised Discuss with your primary care doctor regarding Rivea as advised Total time spent on discharge = 34 minutes This includes examination of the patient, discharge planning, medication reconciliation, and communication with other providers. Discharge Instructions Discharge Instructions Date of Service Mar 02, 2017. Admission Reason for Admission: Alcohol Withdrawal Discharge Discharge Diagnosis / Problem: Alcohol withdrawal Discharge Goals Goal(s): Decrease discomfort, Improve function Activity Recommendations Activity Limitations: resume your previous activity Exercise/Sports Limitations: as tolerated . Instructions / Follow-Up Instructions / Follow-Up Follow up with on 03/05/17 at 11:05 Am Follow with AA meeting/Counselling for rehab as outpatient as recommended Seek immediate medical attention if your symptoms reoccur or worsen Follow up with your Psychiatrist as advised Discuss with your primary care doctor regarding Rivea as advised Current Hospital Diet Patient's current hospital diet: AHA Diet (Heart Healthy), Low Sodium Diet (2gm Na) Discharge Diet Recommended Diet: AHA Diet (Heart Healthy) Pending Studies Studies pending at discharge: no Medical Emergencies . Who to Call and When: Medical Emergencies: If at any time you feel your situation is an emergency, please call 911 immediately. . Non-Emergent Contact Non-Emergency issues call your: Primary Care Provider Call Non-Emergent contact if: you have a fever, your pain is not controlled, your pain is worsening, your pain is unusual for you, your pain is concerning you, you have any medication questions Seek immediate medical attention if your symptoms reoccur or worsen . . "Provider Documentation" section prepared by Abhi Gardner. . VTE Core Measure Inpt VTE Proph given/why not?: SCD's
[2017-03-02 11:16] VITALS: BP 148/89; PULSE 73; TEMP 36.7; O2SAT 97
[2017-03-02] MEDS: GABAPENTIN 600MG Q12H DOSE PO SCH (11:21)
[2017-03-03] MEDS ORDERED: GABAPENTIN 600MG X1 DOSE PO SCH (12:00)
== END 2017-03-02 11:55 | disposition home or self-care (01) | DRG 897 ==
LOC: C.EDB 17:30 → C.MED 21:33 → ENRESERV 21:39
PROVIDERS: ADMIT Internal Medicine; ATTEND Internal Medicine
DX: F10.239 Alcohol dependence with withdrawal, unspecified (principal); F33.9 Major depressive disorder, recurrent, unspecified; S30.0XXA Contusion of lower back and pelvis, initial encounter; I10 Essential (primary) hypertension; Z87.891 Personal history of nicotine dependence; F41.9 Anxiety disorder, unspecified; L40.9 Psoriasis, unspecified; X58.XXXA Exposure to other specified factors, initial encounter; Z80.9 Family history of malignant neoplasm, unspecified; Z82.49 Family history of ischemic heart disease and other diseases of the circulatory system